=== PATIENT | male | born 1965 | race American Indian/Alaskan Native ===

== ENCOUNTER 2018-10-26 11:53 | Emergency (ER) | payer MEDICARE, MEDICAID ==
[~2018-10-26] VITALS: Ht 182.9 cm; Wt 91.2 kg
[2018-10-26 12:58] VITALS: BP 125/79
== END 2018-10-26 14:25 | disposition home or self-care (01) ==
LOC: ER 11:55
DX: T16.1XXA Foreign body in right ear, initial encounter (principal); H60.501 Unspecified acute noninfective otitis externa, right ear; X58.XXXA Exposure to other specified factors, initial encounter; Y93.89 Activity, other specified; Y92.89 Other specified places as the place of occurrence of the external cause; Y99.8 Other external cause status
CPT/HCPCS: 69200